=== PATIENT | female | born 1955 | race Caucasian/White ===

== ENCOUNTER 2024-04-26 08:26 | Day surgery (SDC) | payer MEDICARE, BC ==
[2024-04-26] MEDS ORDERED: Lactated Ringers 1,000 ML IV ONE (09:41)
[2024-04-26] MEDS: Lactated Ringers 1,000 ML IV SCH (09:46)
[2024-04-26 10:36] LABS: ANION GAP 17.9 MEQ/L (5-15); Calcium 9.5 mg/dL (8.4-10.2); Creatinine 1 0.75 mg/dL (0.52-1.04); EST GLOMERULAR FILTRATION RATE 85.6 ML/MIN; Potassium 3.5 mmol/L (3.5-5.1)
[2024-04-26] MEDS ORDERED: propofoL IV ONE ×3 (11:41→12:08)
[2024-04-26 12:22] VITALS: RESP 18
[2024-04-26 12:38] VITALS: BP 117/43; PULSE 59; TEMP 96.7; O2SAT 99
--- NOTE | 2024-04-27 11:13 | OP ---
SURGERY DATE/TIME: 04/26/2024 [id number] PREOPERATIVE DIAGNOSES: 1) Dysphagia. 2) Positive Cologuard. POSTOPERATIVE DIAGNOSES: 1) Gastritic ulcer. 2) Colon polyp. PROCEDURES: 1) Esophagogastroduodenoscopy with biopsy. 2) Colonoscopy with polypectomy. SURGEON: Brad Higgins MD ANESTHESIA: IV anesthesia. CONDITION: Stable. COMPLICATIONS: None. SPECIMENS: As below. INDICATION: The patient is a 69-year-old female, positive Cologuard, desires colonoscopy. Also has some dysphagia with a history of a lap band that is still in place. Does want to proceed with endoscopy. FINDINGS: Gastric ulceration in the body of the stomach with eschar on it. No active signs of bleeding. Biopsies taken for H pylori. An 8 mm polyp at the sigmoid removed. Good preparation. DESCRIPTION OF PROCEDURE AND FINDINGS: Patient was brought to the endoscopy suite. Routinely positioned, prepped. IV anesthesia induced by Anesthesia. The gastroscope was inserted through the mouth, advanced to the third portion of the duodenum. Duodenum was normal in appearance. The stomach does have gastric ulceration in the body of the stomach with eschar on the Pulsar. No visible vessel. No sign of bleeding. Antral biopsies were taken, as well as biopsy of the ulcer sent for pathology. Retroflexion normal. GE junction normal. There is actually no visible indentation from her lap band. The stomach is suctioned out. Scope is withdrawn. Esophagus normal. External examination just with mild hemorrhoid disease. Digital rectal exam normal. Scope was inserted and advanced to the cecum, confirmed by the appendiceal orifice and ileocecal valve. Preparation is [place] good preparation. Greater than 6 minute withdrawal time. At the sigmoid colon, there is some mild diverticulosis. There is also an 8 mm sessile polyp taken with a hot snare completely, sent for pathology. Retroflexion normal. Scope was withdrawn. Patient tolerated the procedure well, is taken to recovery. RECOMMENDATIONS: We are starting her on Protonix 40 mg b.i.d. and Carafate 1 g four times a day and we will see her back in the office in a few weeks.
== END 2024-04-26 12:49 | disposition home or self-care (01) ==
LOC: SDC 08:26
PROVIDERS: ATTEND Surgery
DX: D12.5 Benign neoplasm of sigmoid colon (principal); R13.10 Dysphagia, unspecified; R19.5 Other fecal abnormalities; K25.9 Gastric ulcer, unspecified as acute or chronic, without hemorrhage or perforation; K64.9 Unspecified hemorrhoids; K29.70 Gastritis, unspecified, without bleeding
CPT/HCPCS: 36415; 80048; 93005; J2704